=== PATIENT | female | born 1990 | race Caucasian/White ===

== ENCOUNTER 2025-01-15 18:00 | Outpatient (CLI) | payer BC, SELFPAY ==
[2025-01-15 18:18] VITALS: BP 134/76; PULSE 111; PULSE 114; TEMP 36.7; O2SAT 94
[2025-01-15 18:19] VITALS: PULSE 120; O2SAT 96
[2025-01-15 19:50] VITALS: TEMP 37
[2025-01-15] MEDS: LACTATED RINGERS 1000 ML 1,000 ML IV (20:30)
[2025-01-15 22:05] VITALS: PULSE 115; O2SAT 98
[2025-01-15 22:07] VITALS: BP 106/71; PULSE 125
[2025-01-15 22:09] VITALS: TEMP 36.9
--- NOTE | 2025-01-15 22:38 | PC.OBNST ---
NST Note NST Note Start: 01/15/25 18:07 Freq: ONCE Status: Active Protocol: Document 01/15/25 22:30 SRV (Rec: 01/15/25 22:38 SRV [id number]) NST Note 1 Para (# of births) 0 EDC 01/21/25 Gestational Age In 39 Weeks & 1 Days Weeks & Days High Risk Factors Diabetes - Gestational Diet Controlled Patient Presented Contractions/cramping,Decreased movement,Other with Complaint(s) of If Pain, describe Back pain location Other Complaints Feeling off Reactive Yes Appropriate for Yes Gestational Age RN Kiran RN Date 01/15/25 Reactive Yes Appropriate for Yes Gestational Age HAROLDO Hebert RN Date 01/15/25 OB NST charge Yes Complete NST Note Yes via Write Note The provider's electronic signature indicates the NST is reactive/appropriate for gestational age. *Note to provider: If an addendum is required, open the patient's chart and click on the note under the Nurse/Allied Health tab.
== END 2025-01-15 22:30 | disposition home or self-care (01) ==
LOC: OB OUT 18:00 → OB 18:01
PROVIDERS: PCP Family Medicine; Visit Provider Family Medicine
DX: O47.1 False labor at or after 37 completed weeks of gestation (principal); O36.8130 Decreased fetal movements, third trimester, not applicable or unspecified; O24.419 Gestational diabetes mellitus in pregnancy, unspecified control; Z3A.39 39 weeks gestation of pregnancy
CPT/HCPCS: 59025; G0463; J7120

== ENCOUNTER 2025-01-18 05:25 | Inpatient (IN) | payer BC, SELFPAY ==
[2025-01-18] VITALS (67 sets, daily range): BP systolic 97–128; BP diastolic 56–70; PULSE 66–105; RESP 16; TEMP 36.5–36.9; O2SAT 82–100; BMI 46.5
[2025-01-18] MEDS: LACTATED RINGERS 1000 ML 1,000 ML 900 ML IV ×2 (06:19→07:46)
[2025-01-18 06:33] LABS: Hematocrit* 36.5 % (33.0-51.0); Hemoglobin* 11.7 gm/dL (12.0-16.0); Immature Granulocytes Pct Auto 0.3 %; Mean Corpuscular HGB Conc 32 gm/dL (32-36); Mean Corpuscular Hemoglobin 27 pg (26-34); Mean Corpuscular Volume 84 fL (80-100); RDW Coefficient of Variation % 13.5 % (11.5-15.5); Red Blood Count* 4.33 m/uL (4.00-5.20); White Blood Count* 14.15 K/uL (4.50-11.00)
[2025-01-18 06:44] LABS: Immature Granulocytes Abs Auto 0.00 K/uL (0.00-0.30); Lymphocytes Absolute Auto 2.20 K/uL (0.90-2.90); Slide Review Reflex No
--- NOTE | 2025-01-18 07:20 | W.PM.LDBA ---
Subjective History of Present Illness Time Seen by Provider: 07:20 Date Seen: 01/18/25 Narrative: Patient is being admitted to Labor and Delivery for scheduled delivery. She is a 34 year old at 39.4 weeks gestation. Her full history and physical was dictated by Dr. Murillo on 01/08/25. Please see this for details. No interval changes. Active movement. Denies LOF, vaginal bleeding or abnormal vaginal discharge. Minimal contractions. Surya and BSUS confirmed rl breech presentation. OB - Problem Based A/P Additional Plan (1) Obesity, Class III, BMI 40-49.9 (morbid obesity): Status: Acute (2) AMA (advanced maternal age) multigravida 35+: Status: Acute (3) Pre-diabetes: Status: Acute (4) Gestational diabetes, diet controlled: Status: Acute (5) Breech position of fetus: Status: Acute Plan CS Consent The patient was consented for section and blood. She is having a delivery for the indication of: Breech presentation She understands that the four main categories of risk include pain, bleeding, infection, and damage to surrounding structures. Intraoperative pain will be manage with spinal anesthesia or epidural anesthesia. If that those are not effective or not appropriate for the clinical situation, general anesthesia will be administered. Immediately postop, TAP block will be performed. Throughout her recovery course, she will have on PO pain medications such as ibuprofen, Tylenol, and oxycodone. Regarding infection, she understands that we will be delivering appropriate antibiotics, however that the risk of infection following section still is approximately 5-7%. She understands that though the risk is very low that there is always a risk of damage to the bladder, uterus, ovaries, fallopian tubes, bowels, ureters, or even the fetus (0.1-0.3%). She understands that most injuries can be addressed at the time of surgery, however, such an injury may require additional surgeries to fix. She understands that a section carries a risk of bleeding (1-5% risk of hemorrhage), and that while this bleeding can be addressed with multiple medical and surgical modalities (including hysterectomy), that there is the possibility of needing a blood transfusion (0.5-3%). She reports she would accept a blood transfusion understanding the risks of a 1/300,000 risk of Hepatitis B, 02/15,500,000 risk of Hepatitis C, and 1/2,000,000 risk of HIV as well as the risk of having an allergic reaction to the blood products (1-3%). She further understands that this reaction is typically mild, however can be severe including respiratory distress and necessitating ICU-level care. She understands that a section does increase risks for future pregnancies and deliveries including, but not limited to, the risk of uterine rupture or placenta accreta. Lastly, VTE after delivery rate is around 0.1-0.4%. Will decrease this risk with SCD use, early ambulation, and thromboprophylaxis medication if needed. Given her BMI will used intermediate dose [] We also reviewed postoperative care, recovery, and restrictions. All questions answered to patient's satisfaction and the best of my abilities. Consent form signed and will proceed with delivery via section. OB Exam Physical Exam Vital signs: Pulse BP Pulse Ox 105 H 119/58 L 96 01/18/25 05:55 01/18/25 05:55 01/18/25 05:56 Narrative: Physical exam: General: No acute distress Psych: Alert and oriented x4, full affect HEENT: Normocephalic, atraumatic Lungs: Unlabored breathing Abdomen: Gravid, soft, no tenderness, rebound, or guarding Lower extremities: 1+ bilateral lower extremity edema Pelvic exam: Deferred
[2025-01-18] MEDS: TRANEXAMIC ACID 100 MG/ML INJ 1000 MG IV (08:20)
--- NOTE | 2025-01-18 09:00 | PM.OBPRCCS ---
Procedure Time Seen by Provider: 07:30 Date of procedure: 01/18/25 Will [facility] bill your pro fee for this procedure?: Yes Procedure Description: DELIVERY BY SECTION Date of Service: 01/18/25 Delivery time: 802 Summary: Admitted for scheduled delivery at 0803, Primary Lower uterine transverse section, Pfannenstiel, Closed with sutures, QBL 465 cc, No complications, Findings: Normal uterus, bilateral ovaries and tubes 9/9 , weight 3945 g. Primary Indication: 1. Tello breech presentation Procedures: Primary Lower uterine transverse section Specimens Removed: Placenta Surgeon: Roxana Orozco MD Botanical Technical Officer Surgeon: ANTOINE Wesley Anesthesia: Spinal and TAP Report: Prophylactic antibiotic, 3 g of Ancef was given before patient was taken to OR. After arrival to the operating room patient was placed in the supine position with left lateral tilt after administration of spinal anesthesia. She was prepped and draped in the usual sterile manner. Laparotomy A pfannenstiel incision was made through the anterior abdominal wall with #10 scalpel approximately 2 cm above the pubic symphysis. The incision was extended sharply with the #10 scalpel through the subcutaneous tissue to the level of fascia. The fascia was entered sharply with a #10 scalpel (Pfannenstiel) in the midline and extended in semi-elliptical fashion with Aivles scissor. The underlying muscles were dissected off the overlying fascia by grasping the superior aspect of fascia with two andreea clamps and blunt dissection was used along the midline. The fascia was further from rectus muscle with Aviles scissor and/or cautery. In similar fashion, the lower aspect of fascia was also grasped with two Andreea clamps and both blunt and sharp dissection was used to separate fascia from rectus muscle. The rectus muscles were in the midline bluntly with digits. The peritoneum was then entered bluntly. The peritoneal incision was then extended superiorly and inferiorly under direct visualization with care being taken to avoid bladder and bowel. No adhesions were noted. The peritoneal incision was enlarged bluntly by lateral traction from the surgeon's and placement assistant's hand. Mann retractor was inserted into the abdomen. Delivery A bladder flap was developed by grasping with Andorran forcep and enter with Metzenbaun scissor. Then sharp and blunt dissection with Metzenbaum scissor and fingers were performed. A low transverse hysterotomy was made then with #10 scalpel and extended laterally and cephalad with fingers in a low transverse fashion with Manu Green technique with care being taken to avoid injury to the fetus. The amniotic cavity (membrane) was then entered with spontaneous rupture of membrane, and the amniotic fluid was noted to be clear. buttocks were palpated and delivered gradually through the hysterotomy fundal pressure was continue in both legs were extended using the Pinard maneuver. With gentle pressure the legs and body gradually delivered once the scapula could be seen that the baby was gently rotated and both arms were delivered using the loveset maneuver. Maintaining head flexion, head was delivered without difficulty using the [id number] maneuver. Fetus was delivered breech. With delivery of the baby, no extension was noted. Placenta did not delivery spontaneously with steady traction and manual separation was performed of placenta from uterine wall. Closure Uterine cavity was cleaned after placental delivery with lap sponge x 4. The hysterotomy was closed in two layers with stitches using 0 vicryl with continuous locking stitches and 0 monocryl in a continuous non locking manner. Hemostasis was achieved as needed with electrocautery. 2 figure of 8s applied, one at the right hysterotomy angle and midline. The ovaries/tubes/uterine surface were evaluated. They were found to be normal. Mann retractor removed and hemostasis was confirmed again. Muscle assessed and hemostasis achieved as needed with electrocautery.Fascia was closed with running stitches using 0 PDS. Subcutaneous layer was irrigated. Hemostasis was checked for and found to be adequate. The subcutaneous layer was closed with running 2-0 vicryl sutures. The skin was closed with 4-0 monocryl subcuticular sutures . The incision was cleaned and silver dressing placed. The procedure considered terminate at this time. Intraoperative Complications: None QBL: 465 cc Uterotonics/hemostatic agents: 40 u of pitocin and 1g of TXA Disposition: The patient tolerated the procedure well. She was recovered in Obstetric PACU for close monitoring in stable condition, with a contracted uterus and normal transvaginal bleeding. The infant was sent to mother?s bedside. The placenta was not sent to pathology. Debrief with OR team performed and specimen reviewed at the conclusion of the procedure.
--- NOTE | 2025-01-18 09:30 | P.ANES_ITS ---
Anesthesia Charges Start Date/Time Anesthesia Start Date: 01/18/25 Anesthesia Start Time: 07:25 Stop Date/Time Anesthesia Stop Date: 01/18/25 Anesthesia Stop Time: 09:08 Coding CPT Codes CPT Codes: ANESTH CS DELIVERY - 37832 ([id number]) QK - MEDIA TECHNICIAN 2-4 CNCRNT ANES PROC, QX - HUSKER OPERATOR SVC W/ MD MED DIRECTION, P3 - PATIENT W/SEVERE SYS DISEASE
--- NOTE | 2025-01-18 09:30 | W.ANESCHARGE ---
Anesthesia Charges Start Date/Time Anesthesia Start Date: 01/18/25 Anesthesia Start Time: 07:25 Stop Date/Time Anesthesia Stop Date: 01/18/25 Anesthesia Stop Time: 09:08 Coding CPT Codes CPT Codes: ANESTH CS DELIVERY - 58342 ([id number]) QK - LIGHT BULB REPLACER 2-4 CNCRNT ANES PROC, QX - REFORESTATION WORKER SVC W/ MD MED DIRECTION, P3 - PATIENT W/SEVERE SYS DISEASE
[2025-01-18] MEDS: LACTATED RINGERS 1000 ML 1,000 ML 125 ML IV (09:31)
--- NOTE | 2025-01-18 09:37 | P.ANES_ITS ---
Anesthesia Charges Start Date/Time Anesthesia Start Date: 01/18/25 Anesthesia Start Time: 07:25 Stop Date/Time Anesthesia Stop Date: 01/18/25 Anesthesia Stop Time: 09:08 Coding CPT Codes CPT Codes: ANESTH CS DELIVERY - 81467 ([id number]) P3 - PATIENT W/SEVERE SYS DISEASE, QK - UPHOLSTERY REPAIRER 2-4 CNCRNT ANES PROC, QX - MORGUE LIBRARIAN SVC W/ MD MED DIRECTION
--- NOTE | 2025-01-18 09:37 | W.ANESCHARGE ---
Anesthesia Charges Start Date/Time Anesthesia Start Date: 01/18/25 Anesthesia Start Time: 07:25 Stop Date/Time Anesthesia Stop Date: 01/18/25 Anesthesia Stop Time: 09:08 Coding CPT Codes CPT Codes: ANESTH CS DELIVERY - 23909 ([id number]) P3 - PATIENT W/SEVERE SYS DISEASE, QK - YARD SUPERVISOR 2-4 CNCRNT ANES PROC, QX - REAL ESTATE RECRUITER SVC W/ MD MED DIRECTION
--- NOTE | 2025-01-18 10:47 | W.PM.NB ---
Nerve Block Nerve Block Time Seen by Provider: 08:50 Date Seen: 01/18/25 Type of block requested by surgeon for post-operative analgesia: TAP Side: bilateral Time out performed: Yes Verification of patient name: Yes Verification of date of : Yes Site marking: site marked Name of person performing procedure: Monique Mueller CRNA Assistants, if any: RO Logan Continuous monitoring Was continuous monitoring of O2 sat, B/P, piano case maker, recorded every 15 minutes?: Yes Procedure Checklist: sterile prep, needles and gloves Ultrasound guided. Images saved: Yes Medications given in 5ml increments after negative aspiration: Marcaine %: 0.25 mL: 30 and Exparel mL: 10 Patient tolerated procedure well: Yes Block Charges Block Charge (with Pro Fee): TAP Bilateral Use of Ultrasound Machine for Block: Yes- US Guidance/pain block
[2025-01-18] MEDS: SODIUM CHLORIDE 0.9 % (FLUSH) 10 ML SYRINGE IVF (15:17)
[2025-01-19] VITALS (13 sets, daily range): BP systolic 99–111; BP diastolic 60–75; PULSE 88–98; RESP 16–20; TEMP 36.4–36.8; O2SAT 95–97
[2025-01-19] MEDS: ACETAMINOPHEN 500 MG TABLET 1000 MG PO (02:11)
[2025-01-19 07:08] LABS: Hemoglobin* 10.4 gm/dL (12.0-16.0)
[2025-01-19 08:27] LABS: Glucose* 109 mg/dL (60-115)
--- NOTE | 2025-01-19 08:27 | PM.OBPNVD1 ---
OB - PN:Subj Subjective Date Seen: 01/19/25 Narrative: Catie is a 34 y.o. who was admitted to L & D for scheduled for breech.? She had an uncomplicated primary .? Planning to do 2 hour GTT tomorrow morning for GDM A1. The patient feels well.? The pain is well controlled with current medications.? She has no new complaints.? She is breast feeding and reports things are going well.? the patient has done well.? Vitals have been stable.? She has remained afebrile.? Has a good appetite, is tolerating a general diet.? She is voiding without difficulty.? She is passing gas and has not yet had a bowel movement.? She is ambulating and denies any dizziness.? Has Small amount of rubra lochia.? OB - PN: Obj Exam Physical Exam: Vital signs: Temp Pulse Resp BP Pulse Ox O2 Del Method O2 Flow Rate 97.5 F L 96 16 99/60 95 Room Air 1 01/19/25 03:57 01/19/25 03:57 01/19/25 06:35 01/19/25 03:57 01/19/25 03:57 01/19/25 03:57 01/18/25 10:30 Narrative: GENERAL APPEARANCE:? normal affect, alert, no distress MOOD:? appropriate CHEST:? clear to auscultation HEART:? regular rate and rhythm ABDOMEN:? soft, non-tender the uterine fundus is firm At Umbilicus, Midline and is appropriate for the stage of recovery. PERINEUM:? intact EXTREMITIES:? normal and 2+ edema Incision: dressing clean dry and intact OB - PN: Obj Data Labs Labs: Laboratory Results - last 24 hr 01/19/25 01/19/25 06:10 07:40 Hgb 10.4 L Glucose 109 OB - PN: A/P Delivery Assessment and Plan (1) Obesity, Class III, BMI 40-49.9 (morbid obesity): Status: Acute (2) AMA (advanced maternal age) multigravida 35+: Status: Acute (3) Pre-diabetes: Status: Acute (4) Gestational diabetes, diet controlled: Status: Acute (5) Breech position of fetus: Status: Acute (6) care following delivery: Status: Acute (7) Lactating mother: Status: Acute Plan day: 1 Plan: routine care Comments: Assessment/Plan?G 1 P 1 status post uncomplicated primary .? ?? 1.? Continue route PP cares? 2.? .? May see if desired? 3.? Anticipate discharge home tomorrow or the following day per pt preference? 4.? Acute anemia.? Iron supplement ordered 5. GDM A1, plan 2 hour GTT tomorrow morning?
[2025-01-19] MEDS: ENOXAPARIN 40 MG/0.4 ML INJ SUBCUT ×2 (09:23→20:41)
[2025-01-19] MEDS: DOCUSATE SODIUM 100 MG CAPSULE PO (09:26)
[2025-01-19] MEDS: FERROUS SULFATE 325 MG TABLET PO (09:26)
[2025-01-19] MEDS: SODIUM CHLORIDE 0.9 % (FLUSH) 10 ML SYRINGE IVF (15:17)
[2025-01-19] MEDS: IBUPROFEN 600 MG TABLET PO (19:36)
[2025-01-20 02:15] VITALS: BP 111/73; PULSE 98; RESP 18; TEMP 37.1; O2SAT 97
[2025-01-20] MEDS: IBUPROFEN 600 MG TABLET PO (05:21)
[2025-01-20 09:30] VITALS: BP 110/73; PULSE 98; RESP 18; TEMP 37; O2SAT 97
--- NOTE | 2025-01-20 10:10 | P.DS_ITS ---
<Statement entered by Adelaida Burks MD - 01/31/25 11:44> This documentation has been reviewed and approved. DS: Providers Provider Date Seen: 01/20/25 Date of admission: 01/18/25 05:25 Primary care physician: Carlene Martinez MD Admitting Clinician: Roxana Orozco MD Attending Physician on discharge: Josselyn Burks MD Date of Discharge: 01/20/25 DS: Diagnosis Discharge Diagnosis (1) Lactating mother: Status: Acute (2) care following delivery: Status: Acute (3) Pre-diabetes: Status: Acute Exam Narrative: Exam Narrative: GENERAL APPEARANCE:? normal affect, alert, no distress MOOD:? appropriate CHEST:? clear to auscultation HEART:? regular rate and rhythm ABDOMEN:? soft, non-tender the uterine fundus is At Umbilicus, Midline and is appropriate for the stage of recovery. EXTREMITIES:? normal and bilateral pitting edema +1 Incision: Cover by silver dressing, dry and clean. Const: Vital Signs, click to edit/add: Vital Signs - 24 hr 01/19/25 16:19 01/19/25 20:39 01/20/25 02:15 Temperature 98.2 F 98.8 F Pulse Rate [Pulse Oximeter] 98 98 98 Respiratory Rate 16 20 18 Blood Pressure [Ri ght Arm] 104/67 111/63 111/73 Pulse Oximetry 97 97 97 Oxygen Delivery Me thod Room Air Room Air Room Air OB - DS: Summary Hospital Course Hospital Course: The patient is a 34 year old G 1 P 1001 at 394/7 weeks gestation that was admitted to the Center on 01/18/25 for primary section due to breech presentation. She had an uncomplicated delivery. She delivered a viable female infant. She is breast feeding. the patient has done well. complicated by GDM, fasting blood sugar 138/elevated and suggestive of pre gestational diabetes. Peripartum Data delivery method: Primary C/S; Non-Labored Procedures: Procedures Operation Date: 01/18/25 07:15 Actual Procedure Side Surgeon p Primary Section breach presentation Roxana Orozco MD complications: none Gender: Female Infant Discharge Plan: Home Status at Discharge Functional status at discharge: independent ambulation Overall status at discharge: patient is progressing back to baseline Time Spent with Patient Time attestation: Total time spent providing and/or coordinating discharge services: Time spent: Less than 30 minutes Discharge Plan Discharge Disposition: Home, Self-Care Date of Admission: 01/18/25 05:25 Attending Provider on Discharge: Adelaida Burks Consulting Providers: Hiro Mccann Cristina M Primary Care Provider: Carlene Martinez I Condition: Stable Anticipated Discharge Date/Time: 01/20/25 10:13 Discharge Medications: New acetaminophen 500 mg Tablet 1,000 mg PO Q6H PRN (Reason: Pain) Qty: 30 0RF docusate sodium 100 mg Capsule 100 mg PO DAILY Qty: 30 0RF ibuprofen 600 mg Tablet 600 mg PO Q6H PRN (Reason: Pain) Qty: 30 0RF Continued DHA 200 mg capsule 200 mg PO DAILY Discontinued aspirin 81 mg tablet,chewable 81 mg PO QDAY Discharge Orders: Discharge Order (Routine); Ordered 01/20/25 Ordered By: Adelaida Burks Patient Education: Bupivacaine Liposome (By injection), OB /Breast Feeding Additional Instructions: Silver dressing to be removed 7 days after surgery. Plan to coordinate clinic follow up for this vs 2 week incision check, mood and v isit. Activity Level: Activity as Tolerated, No Weight Bearing and Other Activity Detail: Nothing vaginally for 6 weeks Discharge Diet: Regular Follow Up Appointments: Carlene Martinez MD [Primary Care Provider, Obstetrics] Forms: [facility] Info Instructions
== END 2025-01-20 11:45 | disposition home or self-care (01) | DRG 540 ==
PROVIDERS: Admitting Provider Obstetrics & Gynecology; PCP Family Medicine; Visit Provider Obstetrics & Gynecology
PROC: 10D00Z1 Extraction of Products of Conception, Low, Open Approach (ICD-10-PCS; CPT 59514; principal; 2025-01-18 07:15)
DX: O32.1XX0 Maternal care for breech presentation, not applicable or unspecified (principal); O24.429 Gestational diabetes mellitus in childbirth, unspecified control; G89.18 Other acute postprocedural pain; O99.214 Obesity complicating childbirth; E66.813 Obesity, class 3; O90.81 Anemia of the puerperium; D64.9 Anemia, unspecified; Z3A.39 39 weeks gestation of pregnancy; Z37.0 Single live birth; O36.8130 Decreased fetal movements, third trimester, not applicable or unspecified; O24.419 Gestational diabetes mellitus in pregnancy, unspecified control; O47.1 False labor at or after 37 completed weeks of gestation
CPT/HCPCS: 01961; 36415; 64488; 76815; 76942; 82947; 82950; 82962; 85018; 85025; 86780; 86850; 86900; 86901; A4314; A9270; J0665; J0666; J0690; J1650; J1885; J2274; J2371; J2405; J2590; J7120

== ENCOUNTER 2025-01-24 14:01 | Outpatient (CLI) | payer BC, SELFPAY ==
--- NOTE | 2025-01-24 15:52 | P.LACCB_ITS ---
Consult Note - Mom Date of Visit Date of visit: 01/24/25 Reason for consultation: Assistance Needed Visit Code: Visit Patient's Information Phone number: [phone] Para: 1 Allergies clindamycin Allergy (Mild, Verified 01/18/25 05:45) Rash Work Plans: return to work Apr 2025 Delivery Information Delivery type: Primary C/S; Non-Labored (breech position) Gestational Age: 39+3 Gestational Weight For Age: AGA Weight: 3.941 kg Discharge Weight: 3.662 kg Percentage weight loss: 7.1 Baby's Information Baby's Age at Visit: 6 days Baby's Provider or Clinic: [facility] Jaundice: No Past Experience Past Experience: No Current Frequency of Day Feedings: q 3 hrs day and night, needs waking for some feedings Both Breasts: No Goals: 1 year would be great Pumping Pumping: Yes Quantity Pumped: 4 oz ea feeding/pumping Supplementing EBM Supplement: Yes (babe taking 2 oz/feeding) Baby Elimination Number of Wet Diapers a Day: ea feeding Number of BM a Day: 3-4/day-yellow, seedy Breast/Nipple Condition Breast Information: Breasts are symmetrical with rounded lower quadrants, intramammary distance is less than 1.5 inches. No erythema. Nipples are supple, everted prior to feeding. Breast Shape: Round Engorgement: No Maternal Nipple Condition - Left: Short Maternal Nipple Condition - Right: Short Sore Nipples: No Baby Assessment Skin: Normal Tongue/frenulum: Normal/elastic Palate: Average Lips: Relaxed and Symmetrical Jaw Alignment: Symmetrical Mucosa: [place], moist Onsite Observation Pre-Feed weight: 3.874 kg (weight gain of 144 gms in 2 days) Post-Feed weight: 3.934 kg Milk Transferred (mL): 60 Position: Cross cradle Attachment/latch-on achieved: Easily Suck pattern: Suck burst and normal rest Swallow: Audible, consistent Behavior following feed: Relaxed, sleepy Pre-Nursing Left Nipple: Within Normal Limits Pre-Nursing Right Nipple: Within Normal Limits Post-Nursing Left Nipple: Within Normal Limits Assessments/Interventions Assessments/Interventions: Parents are here for feeding challenge follow up of their baby girl Nika who is now 6 days old. Nika struggled with in the hospital; she did have some good latches to the breast but also had some feedings where she couldn't latch, even with a nipple shield and finger feeding with donor milk was utilized. Family discharged to home on 01/20/25. Mom began pumping when at home and her milk came in that evening. She is currently pumping every 3 hrs and getting 4 oz/session. Baby takes 2 oz every 3 hours, sometimes she drinks it all, and sometimes there is a just a little left in the bottle. They are using a Dr. Bowser bottle; baby takes about 8-10 min to drink down the 2 oz of EBM. Occas after bottle feeding, mom will latch her to the breast for comfort and baby does well with this, but mom is not sure how much she is taking in. They are freezing 1/2 of what she pumps. Questions today focus on pumping and bottling and what that routine looks like. Discussed pumping every 3 hrs when baby feeds; ok to pump the 4 oz, but would not pump more than that to prevent an oversupply Discussed progression of milk intake by baby and may need to pump a bit more, but 4oz/session is good Pump settings/routine for Spectra pump reviewed and questions answered Burping techniques reviewed on request Flange size reviewed Baby ended up latching here in office as she was due for a feeding and family didn't bring EBM with them. She latched well and transferred 60ml in 8 minutes with a rhythmic suck and no pain for mom. She was content after feeding. Mom has a larger breast and a shorter nipple so positioning/holding her breast to assist with latching and maintaining the latch was discussed. Education provided: Asymmetric latch technique for wide/deep latch to increase milk, Transfer for baby and increase comfort for mom, Supply/demand nature of milk supply, Need for frequent stimulation/milk removal, Alternative feeding methods (SNS, cup, finger feeding, bottling), Pumping for milk management and Milk collection, storage Follow-Up Suggested follow up: Appointment as needed Time Spent Time spent with patient (min): 60 Meds Home Medications and Allergies Home Medications ?Medication ?Instructions ?Recorded ?Confirmed ?Type docosahexaenoic acid 200 mg 200 mg PO DAILY 12/26/24 1 03/21/24 History capsule ( DHA) acetaminophen 500 mg tablet 1,000 mg (2 x 500 mg) PO Q 6H PRN 01/20/25 Rx Pain #30 tabs docusate sodium 100 mg capsule 100 mg PO DAILY #30 cap s 01/20/25 Rx ibuprofen 600 mg tablet 600 mg PO Q6H PRN Pain #30 t abs 01/20/25 Rx Allergies Allergy/AdvReac Type Severity Reaction Status Date / Time clindamycin Allergy Mild Rash Verified 01/18/25 05:45
== END 2025-01-24 14:02 | disposition home or self-care (01) ==
LOC: OB LAC 14:01
PROVIDERS: PCP Family Medicine; Visit Provider Obstetrics & Gynecology
DX: Z39.1 Encounter for care and examination of lactating mother (principal)
CPT/HCPCS: G0463